=== PATIENT | male | born 1945 | race Caucasian/White ===

== ENCOUNTER 2020-04-29 17:27 | Inpatient (IN) | payer MEDICARE ==
[~2020-04-29 17:27] MED LIST: Iopamidol-370 76% 500 ML 1 ML ONE
[2020-04-29 18:15] LABS: #Basophils 0.1 thou/uL (0.0-0.2); #Eosinphils 0.1 thou/uL (0.0-0.7); #Lymphocytes 0.9 thou/uL (1.20-3.40); #Monocytes 0.4 thou/uL (0.11-0.59); #Neutrophils 4.9 thou/uL (1.40-6.50); %Basophils 0.9 % (0.0-1.0); %Lymphocytes 14.6 % (21.0-51.0); %Monocytes 6.4 % (0.0-10.0); %Neutrophils 76.1 % (42.0-75.0); Hemoglobin 12.8 g/dL (14.0-18.0); Mean Corpuscular Hemoglobin 29.2 pg (27.0-31.0); Mean Corpuscular Volume 88.6 fL (78.0-98.0); Mean Platelet Volume 7.5 fL (7.4-10.4); Platelet Count 276 thou/uL (130-400); Red Blood Cell (RBC) Count 4.38 mill/uL (4.70-6.10); White Blood Cell (WBC) Count 6.5 thou/uL (4.8-10.8)
[2020-04-29 18:35] LABS: ALT (SGPT) 11 U/L (8-55); AST (SGOT) 21 U/L (5-34); Alkaline Phosphatase 81 U/L (40-110); Anion Gap 12 mmol/L (10-20); BUN (Urea Nitrogen) 18 mg/dL (8.4-25.7); Bilirubin, Total 1.1 mg/dL (0.2-1.2); Calc. Creatinine Clearance 0 mL/min (70-130); Calcium 9.3 mg/dL (7.8-10.44); Carbon Dioxide 22 mmol/L (23-31); Chloride 108 mmol/L (98-107); Estimated GFR-MDRD 57; Globulin 3.7 g/dL (2.4-3.5); Glucose 102 mg/dL (83-110); Magnesium 1.9 mg/dL (1.6-2.6); Potassium 3.7 mmol/L (3.5-5.1); Protein, Total 7.7 g/dL (5.8-8.1); Sodium 138 mmol/L (136-145)
[2020-04-29] MEDS ORDERED: Aspirin Chewable 81 MG TAB ONE (18:36)
[2020-04-29] MEDS ORDERED: Nitroglycerin 2% Ointment 1 INCH/1 GM Packet ONE (18:36)
[2020-04-29 19:01] LABS: CKMB 3.7 ng/mL (0-6.6)
--- NOTE | 2020-04-29 19:16 | RAD ---
PORTABLE CHEST: 04/29/20 HISTORY: Chest pain. COMPARISON: None. Heart size appears slightly enlarged. There is oblong shaped parenchymal density in the right mid yang g field. This is probably related to fluid within the fissure. There is blunting to both costophreni c angles. There are chronic appearing lung changes. Slightly increased interstitial markings are fav ored just to be chronic in nature. IMPRESSION: Cardiomegaly with some mild vascular engorgement. Bilateral pleural effusions. Density within the rig ht mid lung field is felt to represent loculated fluid within a fissure. POS: CHERELLE
--- NOTE | 2020-04-29 20:02 | CT ---
CT ANGIO OF CHEST PERFORMED WITH INTRAVENOUS CONTRAST ENHANCEMENT WITH 3D RECONSTRUCTION: 04/29/20 HISTORY: Left sided chest pain. There is small left effusion and small right effusion. There is fluid loculated within the fissure on the right. There is some minimal ground glass parenchymal change in the upper lobes slightly more pr ominent in the left upper lobe. Not definitive for COVID pneumonia but this possibility would be a co nsideration. No confluent infiltrative process. Atelectatic changes are seen in the lung bases. No significant mediastinal or hilar adenopathy. The thoracic aorta is normal in caliber. There is goo d pulmonary artery opacification and no Ct evidence for pulmonary embolus. The visualized liver paren chyma is normal and area of increased density in the gallbladder neck is most compatible with a stone IMPRESSION: 1. No CT evidence for pulmonary embolus. 2. Bilateral pleural effusions, right larger than left. 3. Minimal ground glass parenchymal changes in the upper lobes not definitive for COVID pneumoni a but this possibility should be a consideration. 4. Gallstone. POS: CHERELLE
[2020-04-29] MEDS ORDERED: Nitroglycerin 50 MG/250 ML BOT 250 ML ONE (20:17)
[2020-04-29] MEDS ORDERED: Furosemide 40 MG/4 ML VIAL ONE (20:17)
--- NOTE | 2020-04-29 20:57 | PDOC.HHP ---
Hospitalist HPI - History of Present Illness Shortness of breath History of Present Illness: 74-year-old man with a history of IN in the past was brought to the emergency department due to sudden onset of shortness of breath upon hearing his spouse will be needing open heart surgery. Patient spouse is admitted here and scheduled for surgery on Monday. Patient states that she felt stressed about the news, developed chest pain followed by sudden onset of shortness of breath. He took a dose of sublingual nitroglycerin which helped the chest pain. Patient reported history of IN and was told he will be needing a triple bypass surgery which he declined. No stent was placed and his IN was being managed medically. His blood pressure in the emergency department was severely elevated with systolic up to 189 on arrival. Patient does not take any antihypertensives and states his blood pressure usually run around 150/80 at home. His check x-ray in the emergency department demonstrated cardiomegaly with mild vascular congestion and bilateral pleural effusion as well as a density within the right midlung field which represents loculated fluid. CTA thorax done confirmed bilateral pleural effusion, larger on the right, minimal groundglass parenchymal changes. His initial troponin is mildly elevated to 0.068. BNP at 907. Patient is diagnosed with new onset CHF and malignant hypertension. He is admitted for further management. ED Course: He was given a dose of IV Lasix, aspirin, transdermal nitro and later nitroglycerin drip in the ED. He was also needing BiPAP for respiratory distress. Hospitalist ROS - Review of Systems Other: Patient denied any palpitation, he denied any headache or abdominal pain, no nausea or vomiting. Except as documented, all other systems reviewed and negative. - Medication Medications: Medication Instructions Recorded Confirmed Type Aspirin [Aspirin EC] 81 mg PO DAILY 04/30/20 04/30/20 History Hospitalist History - Past Medical History Source: patient, family Cardiac: reports: CAD, HTN, IN - Family History Other Family History: Father had an IN at the age of 77. - Social History Smoking Status: Never smoker Alcohol: reports: None Drugs: reports: none Living Situation: With Family - Exam General Appearance: NAD, awake alert General - other findings: Mild respiratory distress Eye: PERRL, anicteric sclera ENT: normocephalic atraumatic, no oropharyngeal lesions, moist mucosa ENT - other findings: BiPAP in place Neck: supple, symmetric, no JVD, no thyromegaly Heart: RRR (Tachycardic), no murmur, no gallops Respiratory: no wheezes, no ronchi Respiratory - other findings: Mild bibasilar crackles Gastrointestinal: soft, non-tender, non-distended, normal bowel sounds Extremities: no cyanosis Extremities - other findings: Trace bilateral pedal edema. Skin: normal turgor, no rashes Neurological: cranial nerve grossly intact, no weakness, no focal deficits Musculoskeletal: normal tone, normal strength Psychiatric: normal affect, normal behavior, A&O x 3 Hospitalist Results - Labs Result Diagrams: 04/30/20 03:10 04/30/20 03:10 Lab results: WBC 6.5 thou/uL (4.8-10.8) 04/29/20 17:59 Hgb 12.8 g/dL (14.0-18.0) L 04/29/20 17:59 Hct 38.8 % (42.0-52.0) L 04/29/20 17:59 MCV 88.6 fL (78.0-98.0) 04/29/20 17:59 Plt Count 276 thou/uL (130-400) 04/29/20 17:59 Neutrophils % 76.1 % (42.0-75.0) H 04/29/20 17:59 Sodium 138 mmol/L (136-145) 04/29/20 17:59 Potassium 3.7 mmol/L (3.5-5.1) 04/29/20 17:59 Chloride 108 mmol/L (98-107) H 04/29/20 17:59 Carbon Dioxide 22 mmol/L (23-31) L 04/29/20 17:59 BUN 18 mg/dL (8.4-25.7) 04/29/20 17:59 Creatinine 1.23 mg/dL (0.7-1.3) 04/29/20 17:59 Glucose 102 mg/dL (83-110) 04/29/20 17:59 Calcium 9.3 mg/dL (7.8-10.44) 04/29/20 17:59 Total Bilirubin 1.1 mg/dL (0.2-1.2) 04/29/20 17:59 AST 21 U/L (5-34) 04/29/20 17:59 ALT 11 U/L (8-55) 04/29/20 17:59 Alkaline Phosphatase 81 U/L (40-110) 04/29/20 17:59 CK-MB (CK-2) 3.7 ng/mL (0-6.6) 04/29/20 17:59 Troponin I 0.068 ng/mL (< 0.028) H 04/29/20 17:59 B-Natriuretic Peptide 907.5 pg/mL (0-100) H 04/29/20 17:59 Serum Total Protein 7.7 g/dL (5.8-8.1) 04/29/20 17:59 Albumin 4.0 g/dL (3.4-4.8) 04/29/20 17:59 Hospitalist H&P A/P - Problem (1) New onset of congestive heart failure Code(s): I50.9 - HEART FAILURE, UNSPECIFIED Status: Acute (2) Malignant hypertension Code(s): I10 - ESSENTIAL (PRIMARY) HYPERTENSION Status: Acute (3) Coronary artery disease Code(s): I25.10 - ATHSCL HEART DISEASE OF [place] CORONARY ARTERY W/O ANG PCTRS Status: Acute (4) Elevated troponin Code(s): R77.8 - OTHER SPECIFIED ABNORMALITIES OF PLASMA PROTEINS Status: Acute - Plan Plan: Admit to telemetry. Mildly elevated troponin could be secondary to demand ischemia given baseline history of coronary artery disease. We will give a short of full dose Lovenox. Continue to trend troponin Start IV Lasix for diuresis. Aggressive blood pressure control. Start nitroglycerin drip. Oral amlodipine and then wean off nitroglycerin drip. Obtain echocardiogram Cardiology consult. Aspirin, Plavix.
[2020-04-29] MEDS ORDERED: Nitroglycerin 50 MG/250 ML BOT 250 ML IVPB SCH (21:00)
--- NOTE | 2020-04-29 21:05 | PDOC.FMACP ---
Advance Care Planning - Problem (1) New onset of congestive heart failure Status: Acute Code(s): I50.9 - HEART FAILURE, UNSPECIFIED (2) Malignant hypertension Status: Acute Code(s): I10 - ESSENTIAL (PRIMARY) HYPERTENSION (3) Coronary artery disease Status: Acute Code(s): I25.10 - ATHSCL HEART DISEASE OF [place] CORONARY ARTERY W/O ANG PCTRS (4) Elevated troponin Status: Acute Code(s): R77.8 - OTHER SPECIFIED ABNORMALITIES OF PLASMA PROTEINS - Note Summary: Advanced Care Planning was discussed. The diagnosis, prognosis and goals of care were discussed. All questions were answered. Patient wishes to remain full code. His son is a medical decision maker. Discussed the need to document MPOA and living will. Time Spent (mins): 16
[2020-04-29] MEDS ORDERED: Enoxaparin Sodium 80 MG/0.8 ML SYRINGE SC SCH (21:30)
[2020-04-29 21:55] LABS: Troponin I 0.074 ng/mL (< 0.028)
[2020-04-30 00:03] LABS: Troponin I 0.078 ng/mL (< 0.028)
[2020-04-30 01:19] VITALS: BMI 23.5
[2020-04-30 03:58] LABS: #Eosinphils 0.1 thou/uL (0.0-0.7); #Lymphocytes 0.7 thou/uL (1.20-3.40); #Monocytes 0.6 thou/uL (0.11-0.59); #Neutrophils 4.1 thou/uL (1.40-6.50); %Basophils 0.9 % (0.0-1.0); %Lymphocytes 12.8 % (21.0-51.0); %Monocytes 10.9 % (0.0-10.0); %Neutrophils 73.4 % (42.0-75.0); Hemoglobin 11.4 g/dL (14.0-18.0); Mean Corpuscular HGB CONC 32.6 g/dL (32.0-36.0); Mean Corpuscular Hemoglobin 29.1 pg (27.0-31.0); Mean Corpuscular Volume 89.5 fL (78.0-98.0); Mean Platelet Volume 7.6 fL (7.4-10.4); Platelet Count 248 thou/uL (130-400); RBC Distribution Width 15.1 % (11.5-14.5); Red Blood Cell (RBC) Count 3.92 mill/uL (4.70-6.10); White Blood Cell (WBC) Count 5.6 thou/uL (4.8-10.8)
[2020-04-30 04:23] LABS: Anion Gap 15 mmol/L (10-20); BUN (Urea Nitrogen) 17 mg/dL (8.4-25.7); Calc. Creatinine Clearance 52 mL/min (70-130); Calcium 9.1 mg/dL (7.8-10.44); Carbon Dioxide 23 mmol/L (23-31); Chloride 104 mmol/L (98-107); Estimated GFR-MDRD 55; Glucose 97 mg/dL (83-110); Magnesium 1.7 mg/dL (1.6-2.6); Potassium 3.5 mmol/L (3.5-5.1); Sodium 138 mmol/L (136-145)
[2020-04-30] MEDS: Furosemide 40 MG/4 ML VIAL SLOW IVP SCH ×2 (05:51→13:04)
[2020-04-30] MEDS ORDERED: Enoxaparin Sodium 40 MG/0.4 ML SYRINGE SC SCH (09:00)
[2020-04-30] MEDS ORDERED: Aspirin Chewable 81 MG TAB PO SCH (09:00)
[2020-04-30] MEDS ORDERED: Clopidogrel Bisulfate 75 MG TAB PO SCH (09:00)
--- NOTE | 2020-04-30 10:07 | CON ---
DATE OF CONSULTATION: 04/30/2020 INDICATION FOR CONSULTATION: A 74-year-old patient with severe coronary artery disease, who developed acute congestive heart failure yesterday. HISTORY OF PRESENT ILLNESS: This very unfortunate 74-year-old gentleman, who has been a patient of mine for couple of years. He last seen was about a year and a half ago in the office. He underwent cardiac catheterization prior to his last visit to the office, where he was found to have severe 3-vessel coronary artery disease. His left main was normal. The left anterior descending artery and left circumflex were 100% occluded. The left circumflex was occluded after the takeoff of a first and second obtuse marginal branches, which were very small, less than 1 mm in diameter. The right coronary artery was 95% occluded distally just at the bifurcation and the posterior lateral branch was 95% occluded. At that time, ejection fraction was 40% to 45%. He also was noted to have what appeared to be a left ventricular thrombus. The apex was akinetic and dyskinetic. At that time, he was referred down to [place] to Dr. Parrish for any possible intervention that could be performed. Unfortunately, he opted not to go. He did speak to Dr. Parrish's office, but then decided he wanted to try robotic surgery, not knowing whether or not he was a candidate. He did some investigation on the Internet and found a physician at [facility], who would do robotic surgery. However, he did not contact him for further evaluation. He has not been seen since as far as coronary artery disease is concerned. He felt that he would try medications, exercise, and diet. Since that time, the only medicine he has been taking has been aspirin. He did have nitroglycerin with him yesterday while he was visiting his , who also has a cardiomyopathy and needs to undergo bypass surgery. Has been in the hospital at [place] trying to have some medical management for congestive heart failure prior to undergoing bypass surgery, also for severe coronary artery disease. While he was visiting yesterday and was told his need to have bypass surgery, he became more anxious. He developed chest pain. He took a nitroglycerin, which did relieve his pain. The nitroglycerin is about a year old, but then he was advised to go to the emergency room. He was in the emergency room and then had the chest x-ray and CT scan and chest x-ray did show bilateral small pleural effusions, also fluid in the fissure on the right side. He then had a CT scan, which showed no evidence of pulmonary embolus. He was then admitted to the hospital for further evaluation and treatment. Laboratory data did show a slight increase in the cardiac enzymes. Troponin I, which could be indeterminate. This could be due to demand ischemia, but does not appear to be a major myocardial infarction. His BNP was elevated at 907. He has been given diuretics and has diuresed, he is negative 660 mL today. He denies any chest pain. He said he has been doing good and actually says that since his cardiac catheterization when he decided to do diet and exercise, he has been using some type of a vibrating machine that he stands on and also uses the pedals for his feet and exercises somewhat, but otherwise does not get any significant exercise, but has not having any significant problems unless he overdoes and gets mild shortness of breath. His echocardiogram in the office last in August of 2018 showed an ejection fraction of 30% to 35%, which correlated relatively well with ejection fraction of 40% to 45% in cardiac catheterization and please note again, he has not been seen in the office since that time. He did not follow up for repeat evaluation. PAST MEDICAL HISTORY: Significant for hypertension, mitral valve prolapse, and history of severe coronary artery disease. He has had a tonsillectomy. ALLERGIES: THERE ARE NO KNOWN DRUG ALLERGIES. MEDICATIONS: He was supposed to be taking; 1. Lisinopril. 2. Furosemide. 3. Potassium. 4. Aspirin. 5. He has been on prednisone in the past. 6. Benadryl. 7. Nitroglycerin as needed. 8. Plavix. 9. Protonix. 10. Unfortunately, he has not been taking any medications. The only medication he was taking at home was an aspirin. REVIEW OF SYSTEMS: A 12-point review of systems is unremarkable except what was noted in the history of present illness. He says he has actually been doing quite well. He has had no chest pain. HEENT: He denied any other HEENT complaints. No visual changes. PULMONARY: No asthma, emphysema, or bronchitis. No significant shortness of breath. Some mild dyspnea on exertion. HEART: No chest pain and no palpitations. GI: He denied any GI complaints such as nausea, vomiting, or diarrhea. : No complaints. No dysuria, polyuria, or hematuria. MUSCULOSKELETAL: He has some perhaps mild swelling at times. Otherwise, no significant abnormalities. FAMILY HISTORY: Noncontributory. SOCIAL HISTORY: He lives with his . There is no significant alcohol or tobacco abuse. PHYSICAL EXAMINATION: GENERAL: Reveals a well-developed, well-nourished gentleman in no acute distress at this time. VITAL SIGNS: Blood pressure 125/71, heart rate is 70 and regular. He has occasional PVCs. Temperature is afebrile and respiratory rate 16. HEENT: Shows head to be normocephalic and atraumatic. Carotid pulses are present. I did not hear any significant bruits. There is no JVD noted. The thyroid did not appear to be enlarged. Oral mucosa was pink and moist. CHEST: Actually clear to auscultations except some mild decreases in the bases, otherwise unremarkable. CARDIOVASCULAR: Reveals a regular rate and rhythm with occasional ectopy. He has a soft systolic murmur of the aortic area. ABDOMEN: Shows the abdomen to be soft and nontender. Positive bowel sounds are present. No organomegaly or masses are noted. Femoral pulses are present. EXTREMITIES: Show no clubbing, cyanosis, or edema. Pedal pulses are present. NEUROLOGIC: The patient appears to be intact. LABORATORY DATA: Shows a WBC of 5.6, hemoglobin 11.4, and platelet count 248,000. Sodium of 138, potassium 3.7, BUN was 18, creatinine 1.23, and blood sugar 102. BNP was 907 and troponin I on admission was 0.068, increased up to 0.074 and then again the third set was 0.078. It appears to be stable. His EKG shows a sinus rhythm with a left bundle branch block and occasional PVCs. This morning, the patient denies any chest pain. He says he is back to normal and I did discuss with him about whether or not he would continue to follow with. He still wants to entertain the idea that he wants to undergo robotic surgery. I have explained to him that not every patient is a candidate even if the robotics is available, not every patient is a candidate for robotic surgery and certainly in his case he has diffuse three-vessel coronary artery disease and the distal disease and very small vessels is unlikely in my opinion that he would be a candidate for robotic surgery. He may only be a candidate for as he says medical management, diet, and exercise. He has been doing relatively well with that, but has not been taking any medications. I will try to reinstate some medications with him and perhaps even try Entresto as well as Vascepa and any other medication that we can attempt in this gentleman to help give him at least some quality of life. At this time, he has been doing relatively well except for yesterday when he had the chest discomfort, but does have evidence of some congestive heart failure on the chest x-ray as well as by BNP elevation. ADDENDUM: IMPRESSION: 1. Severe 3-vessel coronary artery disease, which is most likely inoperable. He is not a candidate for any type of intervention from a balloon standpoint or stents. He has been considering robotic surgery; however, he most likely is not a candidate for this. We can reassess, but most likely is medical treatment only. 2. Elevated cardiac enzymes, which were indeterminate. Most likely, he has demand ischemia associated with stress yesterday when after hearing his needs to undergo bypass surgery. 3. Noncompliance with followup and medications. At this time, I will try to reinstate some of the patient's medications. Most likely, put him on Entresto. We will try also to put him on Vascepa to see if we can decrease the risk of future cardiac events. Obtain an echocardiogram for evaluation of left ventricular systolic function as noted above, he has severe decrease in left ventricular systolic function previously. Job ID: [id number]
[2020-04-30 15:21] VITALS: TEMP 97.5
[2020-04-30] MEDS ORDERED: FLU VACC QS2020-21(65YR UP)/PF 240 MCG/0.7 ML SYRINGE IM ONE (21:00)
--- NOTE | 2020-05-01 09:00 | PQF ---
CLINICAL DOCUMENTATION CLARIFICATION FORM: Dear Dr. BANEGAS Date: 05-01-20 Please exercise your independent, professional judgment in responding to the clarification form. Clinical indicators are provided on the bottom of this form for your review. Please check appropriate box(es): HEART FAILURE: A. ACUITY [ x ] Acute [ ] Acute on Chronic [ ] Chronic B. TYPE: [ ] Systolic / HFrEF [ x ] Diastolic / HFpEF [ ] Combined Systolic / Diastolic With additional: [ ] Hypertensive Heart and Kidney disease [x ] Hypertensive Heart Disease [ ] Hypertensive Kidney Disease [ ] Other diagnosis [ ] Unable to determine For continuity of documentation, please document condition throughout progress notes and discharge summary. Thank You. To be completed by CDI/Coding staff for physician review: CLINICAL INDICATORS - SIGNS / SYMPTOMS / LABS / RESULTS AND LOCATION IN EMR 04-29 ([place]) H&P: New onset CHF; HTN 04-30 Consult (): New onset CHF; most likely demand ischemia Labs: 04-29 BNP 907.5 04-30 Echo: EF 40-45% - mild diastolic dysfunction RISKS FACTORS / RESULTS AND LOCATION IN EMR 04-29 H&P (K[facility]): CAD; HTN; [place] TREATMENTS / RESULTS AND LOCATION IN EMR 04-29 H&P (Kandace): In ED IV Lasix; transdermal Nitro; Nitro gtt; Aspirin; admit to Tele; cardio consult; ECHO CDS Signature: Leslie Tao RN, CCDS Phone #: [phone] This is a permanent part of the Medical Record [facility]
--- NOTE | 2020-05-04 09:59 | DIS ---
DATE OF ADMISSION: 04/29/2020 DATE OF DISCHARGE: 04/30/2020 DIAGNOSES: 1. Severe 3-vessel coronary artery disease, medical management. 2. Type 2 myocardial infarction secondarily to demand ischemia. 3. Medication noncompliance. 4. Chronic kidney disease, stage 3. 5. 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 6. Hypertension. CONSULTATIONS: Dr. Terry with Cardiology Service. PERTINENT LABORATORY AND X-RAY FINDINGS: Creatinine ranged between 1.23 to 1.27 and estimated GFR ranged between 55 to 57. Troponin I ranged between 0.068 to 0.078. BNP ranged between 810 to 908. CBC showed a hemoglobin ranging between 11.4 to 12.8. Portable chest x-ray dated 04/29/2020, showed cardiomegaly with mild vascular prominence. Bilateral pleural effusions. CT angiogram of the chest dated 04/29/2020, showed no evidence for pulmonary embolus. Bilateral pleural effusions, right greater than left noted. 2D transthoracic echocardiogram dated 04/30/2020, showed ejection fraction of 40% to 45%. Akinesis of the apex and severe hypokinesis to akinesis of the anterior wall. No evidence of left ventricular thrombus. Mild diastolic dysfunction. Moderate left atrial enlargement. HOSPITAL COURSE: The patient was initially admitted after presenting with increased shortness of breath in the context of known coronary artery disease. The patient with severe three-vessel coronary artery disease, declining coronary artery bypass grafting in the past. The patient was noted with elevated blood pressures at the time of admission in addition to elevated troponin I consistent with type 2 myocardial infarction due to demand ischemia. The patient did receive IV Lasix, aspirin, transdermal nitroglycerin, and was placed briefly on a nitroglycerin infusion for blood pressure control. Consultation was obtained by the Cardiology Service stating that the coronary artery disease was likely inoperable and needed aggressive medical therapy. The patient was initiated on Entresto due to depressed ejection fraction and titrated on his blood pressure regimen. The patient was also initiated on Plavix in addition to aspirin and overall remained clinically stable. The patient clinically stabilized, he had clinicla improvement faster than expected and was able to be considered for discharge on 04/30/2020. I have examined the patient at the time of discharge and discussed followup instructions. The patient verbalizes understanding and agreement, ready for discharge on 04/30/2020. DISCHARGE MEDICATIONS: 1. Enteric-coated aspirin 81 mg p.o. daily. 2. Entresto 24/26 mg one tablet p.o. b.i.d. 3. Lasix 40 mg p.o. daily. 4. Plavix 75 mg p.o. daily. FOLLOWUP: The patient may follow up with Dr. Jose Goncalves. The patient will follow up with Dr. Marco Terry with Cardiology Service. CONDITION ON DISCHARGE: Fair. ACTIVITY: Ad-kat. DIET: Heart healthy. CODE STATUS: Full. DISPOSITION: To home 04/30/2020. Job ID: [id number] MTDD
--- NOTE | 2020-05-06 09:31 | DIS ---
DATE OF ADMISSION: 04/30/2020 DATE OF DISCHARGE: 04/30/2020 DISCHARGE DIAGNOSES: 1. Acute on chronic combined systolic and diastolic congestive heart failure with ejection fraction of 40% to 45%. 2. Coronary artery disease advanced with medication noncompliance. 3. Hypertensive urgency, resolved. 4. Type 2 non-ST elevation myocardial infarction due to demand ischemia secondary to #1. 5. Chronic kidney disease, stage 3. CONSULTATIONS: Dr. Terry with Cardiology Service. PERTINENT LABORATORY AND X-RAY FINDINGS: Creatinine ranged between 1.23 to 1.27 with estimated GFR ranging between 55 to 57. Troponin I ranged between 0.068 to 0.078. BNP ranged between 810 to 908. Portable chest x-ray dated 04/29/2020, showed cardiomegaly with pulmonary edema bilaterally. Bilateral pleural effusions noted. CT angiogram of the chest dated 04/29/2020, showed no evidence for pulmonary embolus. Bilateral pleural effusions, right greater than left. 2D transthoracic echocardiogram dated 04/30/2020, showed ejection fraction of 40% to 45%. Mild diastolic dysfunction noted. Anterior wall with severe hypokinesis to akinesis. No evidence of left ventricular thrombus. Moderate left atrial enlargement. HOSPITAL COURSE: The patient initially presented complaining of shortness of breath in the context of known congestive heart failure and coronary artery disease with medication noncompliance. Evaluation in the emergency room did show bilateral pulmonary edema with bilateral pleural effusions, at which point the patient received IV Lasix, aspirin, and transdermal nitroglycerin. Due to the patient's elevated blood pressure and hypertensive urgency, the patient was initiated on a nitroglycerin infusion in the intermediate care unit. Consultation was obtained by the Cardiology Service, at which point echocardiogram evaluation showing ejection fraction of 40% to 45% with diastolic dysfunction and no evidence of left ventricular thrombus. Due to the patient's history of noncompliance, current recommendations are for medical management with outpatient followup with Cardiology Service. I have examined the patient at the time of discharge and discussed followup instructions. The patient verbalizes understanding and agreement, ready for discharge on 04/30/2020. DISCHARGE MEDICATIONS: 1. Aspirin 81 mg p.o. daily. 2. Plavix 75 mg p.o. daily. 3. Entresto 24/26 mg 1 tablet p.o. b.i.d. 4. Lasix 40 mg p.o. daily. FOLLOWUP: The patient is to follow up with Dr. Jose Goncalves. The patient will follow up with Dr. Marco Terry with Cardiology Service. CONDITION ON DISCHARGE: Stable. ACTIVITY: Ad-kat. DIET: Heart healthy. CODE STATUS: Full. DISPOSITION: To home on 04/30/2020. TIME SPENT: Total time preparing and coordinating discharge, 32 minutes. Job ID: [id number]
== END 2020-04-30 17:15 | disposition home or self-care (01) | DRG 280 ==
LOC: ERS 17:27 → IMCU/EMU 20:08 → UNDOADMIN 04-30 01:07 → IMCU/EMU 04-30 01:07 → UNDODISIN 04-30 17:15
PROVIDERS: ADMIT Internal Medicine; ATTEND Internal Medicine
DX: I25.10 Atherosclerotic heart disease of native coronary artery without angina pectoris (principal); I21.A1 Myocardial infarction type 2; I50.43 Acute on chronic combined systolic (congestive) and diastolic (congestive) heart failure; I13.0 Hypertensive heart and chronic kidney disease with heart failure and stage 1 through stage 4 chronic kidney disease, or unspecified chronic kidney disease; N18.30 Chronic kidney disease, stage 3 unspecified; I25.2 Old myocardial infarction; Z79.82 Long term (current) use of aspirin; Z90.89 Acquired absence of other organs; Z91.14 Patient's other noncompliance with medication regimen
CPT/HCPCS: 36415; 71045; 71275; 80048; 80053; 82553; 83735; 83880; 84484; 85025; 93005; 93306; 94660; 96365; 96366; 96375; J1650; J1940; Q9967